=== PATIENT | male | born 1965 | race Caucasian/White ===

== ENCOUNTER 2018-03-08 19:07 | Inpatient (IN) | payer BC ==
[2018-03-08] MEDS ORDERED: NA CHLORIDE 0.9% 1,000 ML ONE (20:29)
[2018-03-08 20:43] LABS: Absolute Lymphocytes (CBC) 1.9 K/uL (0.7-4.9); Absolute Monocytes 1.2 K/uL (0.1-1.3); Absolute Neutrophil 8.1 K/uL (1.8-8.0); Basophils % 0.6 % (0-1.3); Eosinophils % 1.1 % (0-4.4); Hematocrit 44.6 % (39.6-49.0); MPV 8.3 fL (7.6-11.3); Monocytes % 10.3 % (3.3-12.3); RBC Red Blood Cell Count 4.78 M/uL (4.33-5.43)
[2018-03-08 20:49] LABS: Albumin 3.7 g/dL (3.4-5.0); Bilirubin Direct 0.1 mg/dL (0-0.2); Bilirubin Total 0.6 mg/dL (0.2-1.0); Potassium 3.6 mmol/L (3.5-5.1); Protein, Total 7.6 g/dL (6.4-8.2)
--- NOTE | 2018-03-08 22:16 | RAD REPORT ---
EXAM DESCRIPTION: CT - Abdomen Pelvis W Contrast - 03/08/2018 9:46 pm COMPARISON: None. TECHNIQUE: Biphasic, helical CT imaging of the abdomen and pelvis was performed following 100 ml non -ionic IV contrast. Oral contrast was given. All CT scans are performed using dose optimization technique as appropriate and may include automated exposure control or mA/KV adjustment according to patient size. FINDINGS: No suspicious findings in the lung bases. The liver, spleen, and pancreas show no suspicious findings. Gallbladder and biliary tree are also wi thout suspicious finding. Symmetric renal function is seen with no hydronephrosis or suspicious renal mass. No pyelonephritis o r acute parenchymal process. No bladder abnormalities. No adrenal abnormalities. No gastric dilatation or wall thickening. No acute small bowel finding. The appendix is normal. From cecum through proximal descending colon there are no acute findings. There is an approximately 7 cent imeter long segment of distal descending colon showing circumferential wall thickening and edema. The re is stranding in the adjacent fat. Patient has diverticulosis in this portion of the colon. No extr aluminal free air. No abscess. Elsewhere no free air, free fluid or inflammatory stranding. No hernia, mass or bulky lymphadenopat hy. No suspicious bony findings. IMPRESSION: Acute diverticulitis involving 7 centimeter length of the distal descending colon. No abscess, free air or surgically emergent finding.
[2018-03-08] MEDS ORDERED: CIPROFLOXACIN 400mg IV 400 MG/200 ML BAG IV ONE (22:50)
[2018-03-08] MEDS ORDERED: metroNIDAZOLE 500 MG TABLET ONE (22:50)
--- NOTE | 2018-03-08 22:59 | ER ---
Nurse's Notes [facility] Name: Emmanuel Martin Age: 52 yrs Sex: Male : 1965 Arrival Date: 03/08/2018 Time: 19:16 Bed 24 Private MD: Diagnosis: Diverticulitis of large intestine without perforation or abscess without bleeding Presentation: 03/08 19:29 Presenting complaint: Patient states: He was seen at [facility] earlier today aj1 for LLQ abdominal pain, he had lab work drawn and they called him and told him that his WBC was too high and to come to the ER. Patient reports LLQ abdominal pain that radiates to the RLQ. Denies N/V/D. Reports chills last night. Transition of care: patient was not received from another setting of care. Onset of symptoms was February 2018. Risk Assessment: Do you want to hurt yourself or someone else? Patient reports no desire to harm self or others. Initial Sepsis Screen: Does the patient meet any 2 criteria? No. Patient's initial sepsis screen is negative. Does the patient have a suspected source of infection? Yes: Acute abdominal pain. Care prior to arrival: None. 19:29 Method Of Arrival: Ambulatory aj1 19:29 Acuity: VARGHESE 3 aj1 Triage Assessment: 19:32 General: Appears in no apparent distress. uncomfortable, Behavior is calm, cooperative, aj1 appropriate for age. Pain: Complains of pain in left lower quadrant Pain radiates to right lower quadrant Pain currently is 7 out of 10 on a pain scale. at worst was 10 out of 10 on a pain scale. Quality of pain is described as sharp, stabbing, Pain began 4 days ago Is intermittent, Alleviated by nothing. Aggravated by nothing. Neuro: Level of Consciousness is awake, alert, obeys commands. Cardiovascular: Patient's skin is warm and dry. Respiratory: Airway is patent Respiratory effort is even, unlabored, Respiratory pattern is regular, symmetrical. Historical: - Allergies: 19:32 No Known Allergies; aj1 - Home Meds: 19:32 None [Active]; aj1 - PMHx: 19:32 None; aj1 - PSHx: 19:32 None; aj1 - Immunization history:: Flu vaccine is not up to date. - Social history:: Smoking status: Patient/guardian denies using tobacco. - Ebola Screening: : Patient denies travel to an Ebola-affected area in the 21 days before illness onset. Screenin:40 Abuse screen: Denies threats or abuse. Denies injuries from another. Nutritional aj1 screening: No deficits noted. Tuberculosis screening: No symptoms or risk factors identified. 03/09 00:13 Fall Risk No fall in past 12 months (0 pts). No secondary diagnosis (0 pts). IV access aj1 (20 points). Ambulatory Aid- None/Bed Rest/Nurse Assist (0 pts). Gait- Normal/Bed Rest/Wheelchair (0 pts) Mental Status- Oriented to own ability (0 pts). Total Hancock Fall Scale indicates No Risk (0-24 pts). Assessment: 03/08 19:40 General: Appears in no apparent distress. uncomfortable, Behavior is calm, cooperative, aj1 appropriate for age. Pain: Complains of pain in left lower quadrant Pain radiates to right lower quadrant Pain currently is 7 out of 10 on a pain scale. Quality of pain is described as sharp, stabbing, Pain began 4 days ago Is intermittent. Neuro: Level of Consciousness is awake, alert, obeys commands. Cardiovascular: Patient's skin is warm and dry. Respiratory: Airway is patent Respiratory effort is even, unlabored, Respiratory pattern is regular, symmetrical. GI: Abdomen is flat, non-distended, Bowel sounds present X 4 quads. Abd is soft X 4 quads Abdomen is tender to palpation in left lower quadrant Reports lower abdominal pain, Patient currently denies diarrhea, nausea, vomiting. : No signs and/or symptoms were reported regarding the genitourinary system. EENT: No signs and/or symptoms were reported regarding the EENT system. Derm: No signs and/or symptoms reported regarding the dermatologic system. Skin is pink, warm \T\ dry. normal. Musculoskeletal: No signs and/or symptoms reported regarding the musculoskeletal system. Circulation, motion, and sensation intact. 20:40 Reassessment: Patient appears in no apparent distress at this time. No changes from aj1 previously documented assessment. Patient and/or family updated on plan of care and expected duration. Pain level reassessed. Patient is alert, oriented x 3, equal unlabored respirations, skin warm/dry/pink. 22:22 Reassessment: Patient appears in no apparent distress at this time. No changes from aj1 previously documented assessment. Patient and/or family updated on plan of care and expected duration. Pain level reassessed. Patient is alert, oriented x 3, equal unlabored respirations, skin warm/dry/pink. 23:24 Reassessment: Patient appears in no apparent distress at this time. No changes from aj1 previously documented assessment. Patient and/or family updated on plan of care and expected duration. Pain level reassessed. Patient is alert, oriented x 3, equal unlabored respirations, skin warm/dry/pink. 03/09 00:15 Reassessment: Patient appears in no apparent distress at this time. No changes from aj1 previously documented assessment. Patient and/or family updated on plan of care and expected duration. Pain level reassessed. Patient is alert, oriented x 3, equal unlabored respirations, skin warm/dry/pink. Vital Signs: 03/08 19:32 BP 156 / 90; Pulse 85; Resp 18; Temp 99.4; Pulse Ox 98% on R/A; Weight 90.72 kg (R); aj1 Height 5 ft. 7 in. (170.18 cm) (R); Pain 7/10; 20:30 BP 142 / 92; Pulse 69; Resp 18; Pulse Ox 97% on R/A; aj1 22:23 BP 129 / 93; Pulse 66; Resp 18; Pulse Ox 97% on R/A; aj1 23:25 BP 134 / 89; Pulse 72; Resp 16; Pulse Ox 97% on R/A; aj1 19:32 Body Mass Index 31.32 (90.72 kg, 170.18 cm) 1 ED Course: 19:16 Patient arrived in ED. ds1 19:29 Adriane Isabel, RN is Primary Nurse. aj1 19:31 Nya Powell FNP-C is PHCP. snw 19:31 Dakota Kent MD is Attending Physician. snw 19:31 Triage completed. aj1 19:32 Arm band placed on Patient placed in an exam room. aj1 19:40 Patient has correct armband on for positive identification. Bed in low position. Call aj light in reach. Side rails up X 1. 19:40 No provider procedures requiring assistance completed. aj1 20:18 Inserted saline lock: 20 gauge in right antecubital area, using aseptic technique. mt Blood collected. 21:[address] via wheelchair. vm2 21:47 CT Abd/Pelvis - W/Contrast In Process Unspecified. EDMS 21:48 CT completed. Patient tolerated procedure well. Patient moved back from CT. vm2 22:58 Geneva Nice MD is Hospitalizing Provider. pending sale to [facility] 03/09 00:13 Report given to TAMIKA Retana on 4th floor. aj1 00:13 Patient admitted, IV remains in place. aj1 Administered Medications: 03/08 20:21 Drug: NS 0.9% 1000 ml Route: IV; Rate: 1 bolus; Site: right antecubital; rr5 23:20 Follow up: IV Status: Completed infusion; IV Intake: 1000ml 23:00 Drug: Flagyl 500 mg Route: PO; aj03/09 00:14 Follow up: Response: No adverse reaction 03/08 23:00 Drug: Ciprofloxacin 400 mg Volume: 200 ml; Route: IVPB; Infused Over: 60 mins; Site: aj right antecubital; 03/09 00:14 Follow up: IV Status: Completed infusion; IV Intake: 200ml 03/08 23:00 Drug: morphine 4 mg Route: IVP; Site: left antecubital; aj03/09 00:14 Follow up: Response: No adverse reaction 03/08 23:00 Drug: Zofran 4 mg Route: IVP; Site: right antecubital; aj03/09 00:14 Follow up: Response: No adverse reaction aj Intake: 03/08 23:20 IV: 1000ml; Total: 1000ml. aj03/09 00:14 IV: 200ml; Total: 1200ml. aj1 Outcome: 03/08 22:58 Decision to Hospitalize by Provider. snw 03/09 00:39 Admitted to Tele accompanied by nurse, via wheelchair, with chart. aj1 Condition: stable Discharge instructions given to patient, Instructed on the need for admit, Demonstrated understanding of instructions. 00:40 Patient left the ED. aj1 Signatures: Dispatcher [employer] EDAdriane Campuzano RN RN aj1 Nya Powell, PAPER BUNDLER-C PAPER BUNDLER-Csnw Mae Mena ds1 Renu Cha 2 Maldonado, Bharti mt Hodges, Nicholas, RN RN rr5
--- NOTE | 2018-03-08 22:59 | EDPHYS ---
Physician Documentation [facility] Name: Emmanuel Martin Age: 52 yrs Sex: Male : 1965 Arrival Date: 03/08/2018 Time: 19:16 Bed 24 Private MD: ED Physician Dakota Kent HPI: 03/08 19:59 This 52 yrs old Male presents to ER via Ambulatory with complaints of snw Abnormal Lab Results. 19:59 The patient presents with abdominal pain in the left lower quadrant. Onset: The snw symptoms/episode began/occurred suddenly, 3 day(s) ago, and became persistent. The symptoms do not radiate. Associated signs and symptoms: none. The symptoms are described as crampy. Severity of pain: At its worst the pain was moderate. The patient has not experienced similar symptoms in the past. The patient has been recently seen at an urgent care, for similar complaints. Historical: - Allergies: 19:32 No Known Allergies; aj1 - Home Meds: 19:32 None [Active]; aj1 - PMHx: 19:32 None; aj1 - PSHx: 19:32 None; aj1 - Immunization history:: Flu vaccine is not up to date. - Social history:: Smoking status: Patient/guardian denies using tobacco. - Ebola Screening: : Patient denies travel to an Ebola-affected area in the 21 days before illness onset. ROS: 19:56 Constitutional: Negative for fever, chills, and weight loss, Eyes: Negative for injury, snw pain, redness, and discharge, ENT: Negative for injury, pain, and discharge, Neck: Negative for injury, pain, and swelling, Cardiovascular: Negative for chest pain, palpitations, and edema, Respiratory: Negative for shortness of breath, cough, wheezing, and pleuritic chest pain, Back: Negative for injury and pain, : Negative for injury, bleeding, discharge, and swelling, MS/Extremity: Negative for injury and deformity, Skin: Negative for injury, rash, and discoloration, Neuro: Negative for headache, weakness, numbness, tingling, and seizure. 19:56 Abdomen/GI: Positive for abdominal pain, abdominal cramps, of the left lower quadrant, pt states he ate Salad on Sun afternoon, began having cramping and lower abd pain that evening. Pt was seen today at [facility] and bloodwork was obtained. Pt noted to have leukocytosis and was directed to ED. Exam: 19:56 Constitutional: This is a well developed, well nourished patient who is awake, alert, snw and in no acute distress. Head/Face: Normocephalic, atraumatic. Eyes: Pupils equal round and reactive to light, extra-ocular motions intact. Lids and lashes normal. Conjunctiva and sclera are non-icteric and not injected. Cornea within normal limits. Periorbital areas with no swelling, redness, or edema. ENT: Nares patent. No nasal discharge, no septal abnormalities noted. Tympanic membranes are normal and external auditory canals are clear. Oropharynx with no redness, swelling, or masses, exudates, or evidence of obstruction, uvula midline. Mucous membranes moist. Neck: Trachea midline, no thyromegaly or masses palpated, and no cervical lymphadenopathy. Supple, full range of motion without nuchal rigidity, or vertebral point tenderness. No Meningismus. Chest/axilla: Normal chest wall appearance and motion. Nontender with no deformity. No lesions are appreciated. Cardiovascular: Regular rate and rhythm with a normal S1 and S2. No gallops, murmurs, or rubs. Normal PMI, no JVD. No pulse deficits. Respiratory: Lungs have equal breath sounds bilaterally, clear to auscultation and percussion. No rales, rhonchi or wheezes noted. No increased work of breathing, no retractions or nasal flaring. Abdomen/GI: Soft, tender to left lower quad, with normal bowel sounds. No distension or tympany. No guarding or rebound. Back: No spinal tenderness. No costovertebral tenderness. Full range of motion. Skin: Warm, dry with normal turgor. Normal color with no rashes, no lesions, and no evidence of cellulitis. MS/ Extremity: Pulses equal, no cyanosis. Neurovascular intact. Full, normal range of motion. Neuro: Awake and alert, GCS 15, oriented to person, place, time, and situation. Cranial nerves II-XII grossly intact. Motor strength 5/5 in all extremities. Sensory grossly intact. Cerebellar exam normal. Normal gait. Psych: Awake, alert, with orientation to person, place and time. Behavior, mood, and affect are within normal limits. Vital Signs: 19:32 BP 156 / 90; Pulse 85; Resp 18; Temp 99.4; Pulse Ox 98% on R/A; Weight 90.72 kg (R); aj1 Height 5 ft. 7 in. (170.18 cm) (R); Pain 7/10; 20:30 BP 142 / 92; Pulse 69; Resp 18; Pulse Ox 97% on R/A; aj1 22:23 BP 129 / 93; Pulse 66; Resp 18; Pulse Ox 97% on R/A; aj1 23:25 BP 134 / 89; Pulse 72; Resp 16; Pulse Ox 97% on R/A; aj1 19:32 Body Mass Index 31.32 (90.72 kg, 170.18 cm) aj1 MDM: 19:38 Patient medically screened. snw 22:58 Data reviewed: vital signs, nurses notes. Data interpreted: Pulse oximetry: on room air snw is 97 %. Interpretation: normal. Counseling: I had a detailed discussion with the patient and/or guardian regarding: the historical points, exam findings, and any diagnostic results supporting the discharge/admit diagnosis, the presence of at least one elevated blood pressure reading (>120/80) during this emergency department visit, lab results, radiology results, the need for further work-up and treatment in the hospital. Physician consultation: Geneva Nice MD was called at 22:59, was contacted at 22:59, regarding admission, to the medical/surgical unit. 03/08 19:37 Order name: Basic Metabolic Panel; Complete Time: 20:49 snw 03/08 19:37 Order name: CBC with Diff; Complete Time: 20:56 snw 03/08 19:37 Order name: Hepatic Function; Complete Time: 20:49 snw 03/08 19:37 Order name: Lipase; Complete Time: 20:49 snw 03/08 19:37 Order name: Blood Culture* snw 03/08 23:33 Order name: CBC with Automated Diff EDMS 03/08 19:37 Order name: CT Abd/Pelvis - W/Contrast; Complete Time: 22:31 snw 03/08 23:33 Order name: CBC with Automated Diff EDMS 03/08 23:33 Order name: Comprehensive Metabolic Panel EDMS 03/08 23:33 Order name: Comprehensive Metabolic Panel EDMS 03/08 19:37 Order name: IV Saline Lock; Complete Time: 20:31 snw 03/08 19:37 Order name: Labs collected and sent; Complete Time: 20:31 snw 03/08 23:33 Order name: CONS Pharmacy Consult [facility] 03/08 23:33 Order name: NPO EDKS Administered Medications: 20:21 Drug: NS 0.9% 1000 ml Route: IV; Rate: 1 bolus; Site: right antecubital; rr5 23:20 Follow up: IV Status: Completed infusion; IV Intake: 1000ml 23:00 Drug: Flagyl 500 mg Route: PO; 03/09 00:14 Follow up: Response: No adverse reaction 03/08 23:00 Drug: Ciprofloxacin 400 mg Volume: 200 ml; Route: IVPB; Infused Over: 60 mins; Site: [facility] right antecubital; 03/09 00:14 Follow up: IV Status: Completed infusion; IV Intake: 200ml 03/08 23:00 Drug: morphine 4 mg Route: IVP; Site: left antecubital; 03/09 00:14 Follow up: Response: No adverse reaction 03/08 23:00 Drug: Zofran 4 mg Route: IVP; Site: right antecubital; 03/09 00:14 Follow up: Response: No adverse reaction aj Disposition: 01:08 Co-signature as Attending Physician, Dakota Kent MD. rn Disposition: 03/08/18 22:58 Hospitalization ordered by Geneva Nice for Inpatient Admission. Preliminary diagnosis is Diverticulitis of large intestine without perforation or abscess without bleeding. - Bed requested for Telemetry/MedSurg (Inpatient). - Status is Inpatient Admission. aj1 - Condition is Stable. - Problem is new. - Symptoms are unchanged. UTI on Admission? No Signatures: Dispatcher [employer] EDKS Adriane Isabel RN RN aj1 Jessica Lei RN RN kl Therrien, Shelly, SODA DIALYZER-C SODA DIALYZER-Csnw Dakota Kent MD MD rn Roque, Raymond, RN RN rr5 Corrections: (The following items were deleted from the chart) 03/08 23:43 22:58 Hospitalization Ordered by Geneva Nice MD for Inpatient Admission. Preliminary kl diagnosis is Diverticulitis of large intestine without perforation or abscess without bleeding. Bed requested for Telemetry/MedSurg (Inpatient). Status is Inpatient Admission. Condition is Stable. Problem is new. Symptoms are unchanged. UTI on Admission? No. snw 03/09 00:40 03/08 23:43 03/08/2018 22:58 Hospitalization Ordered by Geneva Nice MD for Inpatient aj1 Admission. Preliminary diagnosis is Diverticulitis of large intestine without perforation or abscess without bleeding. Bed requested for Telemetry/MedSurg (Inpatient). Status is Inpatient Admission. Condition is Stable. Problem is new. Symptoms are unchanged. UTI on Admission? No. kl
[2018-03-08] MEDS ORDERED: ONDANSETRON 4 MG/2 ML VIAL ONE (23:13)
[2018-03-08] MEDS ORDERED: MORPHINE 4 MG/ML SYR ONE (23:13)
[2018-03-08] MEDS ORDERED: ONDANSETRON 4 MG/2 ML VIAL IV PRN (23:30)
[2018-03-08] MEDS ORDERED: MORPHINE 2 MG/ML SYR IV PRN (23:30)
[2018-03-09] MEDS: NA CHLORIDE 0.9% 1,000 ML IV SCH ×4 (00:41→23:43)
[2018-03-09 05:58] LABS: Absolute Lymphocytes (CBC) 1.8 K/uL (0.7-4.9); Absolute Neutrophil 5.9 K/uL (1.8-8.0); Basophils % 0.4 % (0-1.3); Eosinophils % 2.1 % (0-4.4); Hematocrit 41.5 % (39.6-49.0); Lymphocytes % 20.4 % (15.3-44.8); MPV 8.3 fL (7.6-11.3)
[2018-03-09 06:19] LABS: Albumin 3.1 g/dL (3.4-5.0); Bilirubin Total 0.9 mg/dL (0.2-1.0); Protein, Total 6.7 g/dL (6.4-8.2)
[2018-03-09 07:14] LABS: Urine Appearance CLEAR; Urine Bilirubin NEGATIVE (NEG); Urine Blood NEGATIVE (NEG); Urine Color YELLOW; Urine Glucose NEGATIVE (NEG); Urine Protein NEGATIVE (NEG)
[2018-03-09 07:15] LABS: Urine Urobilinogen 0.2 mg/dL (0.2-1.0)
[2018-03-09 07:21] LABS: Urine Microscopic Reflex NO UMIC
[2018-03-09] MEDS ORDERED: INFLUENZA VACCINE (for 3y+) 0.5 ML DOSE IMVAC ONE (08:00)
--- NOTE | 2018-03-09 10:07 | P.HP ---
Certification for Inpatient Patient admitted to: Inpatient With expected LOS: >2 Midnights Patient will require the following post-hospital care: None Practitioner: I am a practitioner with admitting privileges, knowledge of patient current condition, hospital course, and medical plan of care. Services: Services provided to patient in accordance with Admission requirements found in Title 42 Section 412.3 of the Code of Federal Regulations Patient History Date of Service: 03/08/18 Reason for admission: Acute diverticulitis History of Present Illness: Patient is a 52-year-old gentleman who came into the hospital with abdominal pain. Patient had pain in the left lower quadrant. Patient came to the emergency room and his workup revealed acute diverticulitis. Patient had a large segment of his descending colon which was inflamed. Patient be admitted to the hospital for further workup. Pt will need outpatient colonoscopy in 6- 12 weeks Allergies No Known Allergies Allergy (Unverified 03/08/18 23:39) Home Medications: NK [No Home Meds] 03/09/18 - Past Medical/Surgical History Has patient received pneumonia vaccine in the past: No Diabetic: No Past Medical History: Patient denies medical history Past Surgical History: Patient denies surgical history - Family History Father Notes: Rheumatoid Arthritis - Social History Smoking Status: Never smoker Alcohol use: Yes CD- Drugs: No Caffeine use: No Place of Residence: Home Review of Systems 10-point ROS is otherwise unremarkable Physical Examination - Vital Signs Temperature: 98.1 F Blood Pressure: 133/79 Pulse: 64 Respirations: 18 Pulse Ox (%): 98 - Physical Exam General: Alert, In no apparent distress, Oriented x3 HEENT: Atraumatic, PERRLA, Mucous membr. moist/pink, EOMI, Sclerae nonicteric Neck: Supple, 2+ carotid pulse no bruit, No LAD, Without JVD or thyroid abnormality Respiratory: Clear to auscultation bilaterally, Normal air movement Cardiovascular: Regular rate/rhythm, Normal S1 S2, No murmurs Gastrointestinal: Normal bowel sounds, Soft and benign, Non-distended, No tenderness Musculoskeletal: No clubbing, No swelling, No tenderness Integumentary: No rashes Neurological: Normal gait, Normal speech, Normal strength at 5/5 x4 extr, Normal tone, Sensation intact, Cranial nerves 3-12 intact, Normal affect Lymphatics: No axilla or inguinal lymphadenopathy - Studies Laboratory Data (last 24 hrs) 03/08/18 20:17: WBC 11.5 H, Hgb 15.2, Hct 44.6, Plt Count 185 03/08/18 20:17: Sodium 138, Potassium 3.6, BUN 13, Creatinine 1.10, Glucose 94, Total Bilirubin 0.6, AST 28, ALT 57, Alkaline Phosphatase 68, Lipase 109 Assessment & Plan - Problems (Diagnosis) (1) Acute diverticulitis Onset Date: 03/09/18 Current Visit: No Status: Acute - Plan 1. Continue with IV hydration 2. Continue with IV antibiotics 3. Continue with pain control 4. NPO 5. GI consultation; outpatient colonoscopy in 6-12 weeks 6. Serial H&H, and we will monitor CBC, BMP, LFTs and lipase along with electrolytes. 7. GI and DVT prophylaxis Discharge Plan: Home Plan to discharge in: 24 Hours - Advance Directives Does patient have a Living Will: No Does patient have a Durable POA for Healthcare: No - Code Status/Comfort Care Code Status Assessed: Yes Code Status: Full Code Critical Care: No Time Spent Managing PTS Care (In Minutes): 50
[2018-03-09] MEDS: ACETAMINOPHEN 500 MG TAB PO PRN ×2 (10:51→20:43)
[2018-03-09] MEDS: METRONIDAZOLE 500mg IVPB 500 MG/100 ML BAG IV SCH ×3 (12:40→23:43)
[2018-03-09] MEDS: CIPROFLOXACIN 400mg IV 400 MG/200 ML BAG IV SCH ×2 (12:41→20:44)
--- NOTE | 2018-03-09 12:48 | P.PN ---
Subjective Date of Service: 03/09/18 Chief Complaint: Acute diverticulitis Subjective: No new changes, No C/O voiced, Improving Patient seen and examined at bedside. No family at bedside. Chart reviewed and case discussed with nursing staff. Denies any abdominal pain at this time, no nausea or vomiting. No prior episodes of diverticulitis or any other abdominal surgeries. Review of Systems As noted Physical Examination - Vital Signs Temperature: 98.1 F Blood Pressure: 133/79 Pulse: 64 Respirations: 18 Pulse Ox (%): 98 - Physical Exam General: Alert, In no apparent distress, Oriented x3 HEENT: Atraumatic, PERRLA, EOMI Neck: Supple, JVD not distended Respiratory: Clear to auscultation bilaterally, Normal air movement Cardiovascular: Regular rate/rhythm, Normal S1 S2 Gastrointestinal: Normal bowel sounds, Tenderness Musculoskeletal: No tenderness Integumentary: No rashes Neurological: Normal speech, Normal tone, Normal affect Lymphatics: No axilla or inguinal lymphadenopathy - Studies Laboratory Data (last 24 hrs) 03/08/18 20:17: WBC 11.5 H, Hgb 15.2, Hct 44.6, Plt Count 185 03/08/18 20:17: Sodium 138, Potassium 3.6, BUN 13, Creatinine 1.10, Glucose 94, Total Bilirubin 0.6, AST 28, ALT 57, Alkaline Phosphatase 68, Lipase 109 Assessment And Plan - Plan This is a 52-year-old male with: Acute diverticulitis Continue to keep NPO, IV fluids. Continue IV ciprofloxacin and Flagyl. Will try clear liquid diet when symptoms improved, possibly for dinner today. Will advance diet as tolerated DVT prophylaxis: None, encourage ambulation GI prophylaxis: None Diet: NPO Disposition: Pending symptomatic improvement. Will start clear liquids likely for dinner today, advance as tolerated Physician Review: Patient Assessed, Agree with Above Assessment and Plan Time Spent Managing PTS Care (In Minutes): 35
[2018-03-09] MEDS ORDERED: VANCOMYCIN 1.25 GM in NA CHLORIDE 0.9% 250 ML IVPB ONE (21:41)
[2018-03-10] MEDS ORDERED: VANCOMYCIN 1 GM/VIAL ONE (00:46)
[2018-03-10] MEDS ORDERED: NA CHLORIDE 0.9% 250 ML ONE (01:12)
[2018-03-10] MEDS ORDERED: WATER FOR INJ,STERILE 20 ML ONE (01:14)
[2018-03-10] MEDS: NA CHLORIDE 0.9% 1,000 ML IV SCH ×2 (05:07→15:45)
[2018-03-10] MEDS: METRONIDAZOLE 500mg IVPB 500 MG/100 ML BAG IV SCH ×3 (05:56→16:43)
[2018-03-10] MEDS: CIPROFLOXACIN 400mg IV 400 MG/200 ML BAG IV SCH (08:52)
--- NOTE | 2018-03-10 16:54 | P.PN ---
Subjective Date of Service: 03/10/18 Chief Complaint: Acute diverticulitis Subjective: No new changes, No C/O voiced, Improving Patient seen and examined at bedside. No family at bedside. Chart reviewed and case discussed with nursing staff. Denies any abdominal pain at this time, no nausea or vomiting. No prior episodes of diverticulitis or any other abdominal surgeries. Review of Systems As noted Physical Examination - Vital Signs Temperature: 99.7 F Blood Pressure: 141/81 Pulse: 79 Respirations: 18 Pulse Ox (%): 97 - Physical Exam General: Alert, In no apparent distress, Oriented x3 HEENT: Atraumatic, PERRLA, EOMI Neck: Supple, JVD not distended Respiratory: Clear to auscultation bilaterally, Normal air movement Cardiovascular: Regular rate/rhythm, Normal S1 S2 Gastrointestinal: Normal bowel sounds, No tenderness Musculoskeletal: No tenderness Integumentary: No rashes Neurological: Normal speech, Normal tone, Normal affect Lymphatics: No axilla or inguinal lymphadenopathy Assessment And Plan - Plan This is a 52-year-old male with: Acute diverticulitis Patient tolerated full liquids, advance to GI soft diet. Continue IV ciprofloxacin and Flagyl. Discontinue IV fluids DVT prophylaxis: None, encourage ambulation GI prophylaxis: None Diet: GI soft diet Disposition: Pending symptomatic improvement. Likely discharge home in the next 24 hr Discharge Plan: Home Plan to discharge in: 24 Hours Physician Review: Patient Assessed, Agree with Above Assessment and Plan Time Spent Managing PTS Care (In Minutes): 30
--- NOTE | 2018-03-10 18:18 | P.DS ---
Admission Date: 03/08/18 Discharge Date: 03/10/18 Disposition: ROUTINE DISCHARGE Discharge Condition: GOOD Reason for Admission: Acute diverticulitis Brief History of Present Illness: Patient is a 52-year-old gentleman who came into the hospital with abdominal pain. Patient had pain in the left lower quadrant. Patient came to the emergency room and his workup revealed acute diverticulitis. Patient had a large segment of his descending colon which was inflamed. Patient be admitted to the hospital for further workup. Pt will need outpatient colonoscopy in 6- 12 weeks Hospital Course: Patient was admitted for acute diverticulitis. IV fluids were started, he was kept NPO. He was also started on IV ciprofloxacin and Flagyl. As the symptoms improved, he was started on clear liquid diet and advanced as tolerated. He is able to tolerate a GI soft diet prior to discharge. At the time of discharge, no complaints of abdominal pain, nausea or vomiting. He is to return on medically stable and remained stable throughout the hospitalization. Discussed extensively regarding following up with a public address servicer for an outpatient colonoscopy in about 6-12 weeks. Information for gastroenterology provided to patient as well as information regarding primary care physician provided to patient. Recommended following up with the primary care physician in 1 week. Recommended to follow up with the public address servicer in 2 weeks in order to set up a colonoscopy. Vital Signs/Physical Exam: Temp Pulse Resp BP Pulse Ox 99.7 F 79 18 141/81 H 97 03/10/18 16:54 03/10/18 16:54 03/10/18 16:54 03/10/18 16:54 03/10/18 16:54 General: Alert, In no apparent distress, Oriented x3 HEENT: Atraumatic, PERRLA, EOMI Neck: Supple, JVD not distended Respiratory: Clear to auscultation bilaterally, Normal air movement Cardiovascular: Regular rate/rhythm, Normal S1 S2 Gastrointestinal: Normal bowel sounds, No tenderness Musculoskeletal: No tenderness Integumentary: No rashes Neurological: Normal speech, Normal tone, Normal affect Lymphatics: No axilla or inguinal lymphadenopathy Laboratory Data at Discharge: WBC 9.0 K/uL (4.3-10.9) D 03/09/18 05:22 Hgb 14.6 g/dL (13.6-17.9) 03/09/18 05:22 Hct 41.5 % (39.6-49.0) 03/09/18 05:22 Plt Count 167 K/uL (152-406) 03/09/18 05:22 Sodium 141 mmol/L (136-145) 03/09/18 05:22 Potassium 4.0 mmol/L (3.5-5.1) 03/09/18 05:22 BUN 11 mg/dL (7-18) 03/09/18 05:22 Creatinine 0.90 mg/dL (0.55-1.3) 03/09/18 05:22 Glucose 95 mg/dL (74-106) 03/09/18 05:22 Total Bilirubin 0.9 mg/dL (0.2-1.0) 03/09/18 05:22 AST 25 U/L (15-37) 03/09/18 05:22 ALT 53 U/L (12-78) 03/09/18 05:22 Alkaline Phosphatase 61 U/L (45-117) 03/09/18 05:22 Lipase 109 U/L (73-393) 03/08/18 20:17 Home Medications: Ciprofloxacin HCl [Cipro 500 MG Tablet] 500 mg PO BID #24 tab 03/10/18 metroNIDAZOLE [Flagyl] 500 mg PO Q6H #48 tablet 03/10/18 New Medications: Ciprofloxacin HCl [Cipro 500 MG Tablet] 500 mg PO BID #24 tab metroNIDAZOLE [Flagyl] 500 mg PO Q6H #48 tablet Patient Discharge Instructions: Please follow up with the primary care physician in 1 week. List provided to her primary care physicians. I have included information for gastroenterology doctor. Please call us office and make an appointment to follow up in about 2 weeks. You may need a colonoscopy in about for 6 weeks as we had discussed. Gastroenterology can help you set that up as an outpatient. New medications: 2 antibiotics have been sent for you. Flagyl and ciprofloxacin. Diet: GI soft Activity: Ad andreia Followup: Nader Ibarra MD [ASSOCIATE-ACTIVE - CAN ADMIT] - Physician Review: Patient Assessed, Agree with Above Assessment and Plan Time spent managing pt's care (in minutes): 55
== END 2018-03-10 18:53 | disposition home or self-care (01) | DRG 392 ==
LOC: ER 19:07 → 4TH 23:30
PROVIDERS: ADMIT Hospitalist; ATTEND Family Medicine
DX: K57.32 Diverticulitis of large intestine without perforation or abscess without bleeding (principal)
CPT/HCPCS: 36415; 74177; 80048; 80053; 80076; 81003; 82150; 83690; 85025; 87040; 87205; 99285; G0008; J0744; J2270; J2405; J7030; Q2035; Q9967